=== PATIENT | male | born 1940 | race Caucasian/White ===

== ENCOUNTER → 2017-10-23 | Outpatient (CLI) | payer OTHER, MEDICARE ==
[~2017-10-23] VITALS: Ht 185.4 cm; Wt 90.7 kg
[~2017-10-23] MED LIST: ALEVE220 MG PO; AMOXICILLIN 50500 MG PO; AUGMENTIN 875-1 EACH PO; CLARITIN10 MG PO; FISH OIL 1,001000 M2 PO; FLOMAX0.4 MG PO; FLONASE 0.05%50 MCG NASAL; GREEN TEA1 EACH PO; LOVASTATIN 20 M20 MG PO; NEURONTIN 300300 M1 PO; OXYBUTYNIN 5 MG5 M2 PO; SAW PALMETTO160 MG PO; SILDENAFIL20 MG PO; TENORMIN25 MG PO; VITAMIN D32000 UNIT PO; VITAMIN E400 UNIT PO; VITAMINC500 PO
--- NOTE | ~2017-10-23 | HPC ---
[facility] [place] [address] PAIN MANAGEMENT CONSULTATION Name: Marbin MERINO Room #: REG CAIO Cullen#: [id number] Admission: 10/23/17 Attend Phys: Ranjit Fitch DO Discharge: Date of : 36 Report #: [id number] THIS REPORT FOR: //name// CC: Dillon Fitch The patient is a 77-year-old gentleman who I saw in consultation back in December of 2015. He is having neuropathic pain, right lower extremity, status post tibiotalar joint arthroplasty and osteotomy, distal right foot. At that time, I saw him he was having some chronic lower extremity edema. He had been taking gabapentin 900 mg daily. I suggest he try weaning off of that to see if it affected the lower extremity edema. He had some venous issues and was status post venous ablation at 2 specific sites. He was actually doing better at the time when I saw and again I suggest to continue weaning the gabapentin. He is somewhat lost to follow up and returns to pain clinic today for prolonged visit. He was seen from 14:11 to approximately 14:30. Greater than 50% of this 25+ minute visit was spent counseling the patient. The patient notes that he has the chronic ongoing right lower extremity neuropathic pain, but notes that around [place], he developed contralateral left-sided radicular pain and what appears to be in L4 pattern, down the lateral thigh down into the leg and into the foot. He notes episodic pain, he rates 9 on a VAS. He denies antecedent trauma and overuse. He notes the pain is exacerbated with weightbearing. The right neuropathic pain is exacerbated with any pressure on the foot including bed sheets. REVIEW OF SYSTEMS: Complete review of systems gone over with the patient. He is recently started on amoxicillin for a sinus infection. He has about 7 days left of this. He takes tamsulosin and sildenafil for some chronic urethral strictures, status post urethral resection. Some concern for prostatic hypertrophy. Started on naproxen sodium for left lumbar radicular pain. It has helped a little and has also helped his right foot some. Does take lovastatin for dyslipidemia and atenolol for hypertension. PHYSICAL EXAMINATION: Reveals a 77-year-old gentleman, BMI is 26.4 kilograms per meter squared. Vital signs stable as noted in the EMR. Rises from chair using armrest, moderately antalgic gait. Limited range of motion of the right ankle, hyperpathia about the right foot and ongoing radicular pain in the left leg. Left leg does show diminished hip flexion and lower extremity extension strength. Patellar reflex is modestly diminished in left compared to the right. Straight leg raise is equivocal. Plantar flexion, dorsiflexion is limited on the right. DIAGNOSTIC STUDIES: There are no recent diagnostic studies available for evaluation at this time. [address] [address] PAIN MANAGEMENT CONSULTATION Name: Marbin MERINO Room #: REG [facility] Subhash#: [id number] Admission: 10/23/17 Attend Phys: Ranjit Fitch DO Discharge: Date of : 36 Report #: [id number] ASSESSMENT: 1. Symptomatic left L4 radiculopathy by clinical exam and history. 2. Right lower extremity neuropathic pain. RECOMMENDATION: Long discussion with the patient today about therapeutic options. 1. We will seek authorization for lumbar epidural injection under fluoroscopy, off antibiotics for 7 days. 2. Discussed therapeutic options for bilateral lower extremity pain, specifically right neuropathic pain. May consider spinal cord stimulator trial if the patient fails conservative therapies. May consider course of lumbar sympathetic blocks. May benefit from sodium channel membrane stabilizing agent (Trileptal ?) though the patient states he is loathe to start any new oral agents. Similarly he may benefit from baclofen for some chronic spasm in the right foot, but again he is loathe to start any nursing home medications. We will move forward with epidural injection under fluoroscopy. If the patient does not get adequate relief, will need MRI of the lumbar spine at that time. Thank you for allowing me to participate in the patient's care. I will keep you abreast of his progress. <ELECTRONICALLY SIGNED> By: Ranjit Fitch DO 10/24/17 0725 [id number] Ranjit Fitch DO /nt
[2017-10-23 13:25] VITALS: BP 134/82
== END ==
LOC: EDBD 06:58 → PAIN 06:58
DX: M54.16 Radiculopathy, lumbar region (principal)

== ENCOUNTER → 2017-11-10 | Outpatient (CLI) | payer OTHER, MEDICARE ==
[~2017-11-10] VITALS: Ht 185.4 cm; Wt 97.1 kg
--- NOTE | ~2017-11-10 | HPC ---
[facility] [place] [address] PAIN MANAGEMENT CONSULTATION Name: Marbin MERINO Room #: REG Maulik Cullen#: [id number] Admission: 11/10/17 Attend Phys: Ranjit Fitch DO Discharge: Date of : 36 Report #: [id number] THIS REPORT FOR: //name// CC: Dillon Fithc The patient is a 77-year-old gentleman, prior seen in the pain clinic on 10/23/2017, diagnosed with lumbar radiculopathy, left lower extremity pain requiring complex medication management. We sought authorization for epidural injection under fluoroscopy today. The patient presents to the pain clinic today for said injection. Notes pain continues to be problematic down the low back, left buttock and leg. Physical exam is unchanged from presentation. Pain in the left L4-L5, L5-S1 pattern. Does have some tenderness over the left low back as well. We did talk today about possibly moving forward with left L4-L5 and L5-S1 facet joint injection under fluoroscopy if needed. 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 ASSESSMENT: Symptomatic lumbar radiculopathy. PROCEDURE: Lumbar epidural injection under fluoroscopy. PROCEDURE NOTE: After both written and informed consent to include risk of spinal cord damage, increased pain, weakness and dural puncture, the patient was taken to the fluoroscopy suite, placed in the prone position. After sterile prep and drape, a skin wheal with lidocaine was raised. A 22-gauge epidural Tuohy needle was inserted in the midline at L4-L5 with good loss to resistance. Negative aspiration for cerebrospinal fluid or blood was noted. Then 1 mL of Omnipaque under biplanar fluoroscopy showed good spread within the epidural space. This was followed with 80 mg of triamcinolone plus 1 mL of 1.5% preservative-free Xylocaine, 0.5 mL Xylocaine was then injected to flush the needle; it was removed. The patient was monitored for an appropriate period of time and discharged in good and stable condition. Follow up in 2 weeks for reevaluation. Consideration for left L4-L5 and L5-S1 facet joint injections if indicated clinically. <ELECTRONICALLY SIGNED> By: Ranjit Fitch DO 11/12/17 0724 [id number] [id number] Ranjit Fitch DO /nt
[2017-11-10 12:37] VITALS: BP 162/84
== END | disposition home or self-care (01) ==
LOC: PAIN 07:36
DX: M54.16 Radiculopathy, lumbar region (principal)